=== PATIENT | female | born 1950 | race Caucasian/White ===

== ENCOUNTER 2016-09-12 09:54 | Observation (INO) | payer OTHER, BC ==
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
[2016-09-12 14:26] VITALS: BP 125/72; PULSE 76; RESP 18; TEMP 97.8; O2SAT 97
== END 2016-09-12 15:00 | disposition home or self-care (01) ==
LOC: H.ER 09:54 → H.EROBSV 11:18 → H.ER 12:42
PROVIDERS: ADMIT Emergency Medicine; ATTEND Emergency Medicine
DX: S13.4XXA Sprain of ligaments of cervical spine, initial encounter (principal); S79.911A Unspecified injury of right hip, initial encounter; M54.5 Low back pain; V43.53XA Car driver injured in collision with pick-up truck in traffic accident, initial encounter; Y92.414 Local residential or business street as the place of occurrence of the external cause; Z88.0 Allergy status to penicillin
CPT/HCPCS: 72040; 72100; 72131; 73501; 99284; G0378